=== PATIENT | female | born 1960 | race American Indian/Alaskan Native ===

== ENCOUNTER 2016-07-02 04:40 | Observation (INO) | payer BC, OTHER ==
[2016-07-02 04:47] VITALS: BMI 40.1
--- NOTE | 2016-07-02 05:07 | ED PDOC ---
Arrival/HPI - General Chief Complaint: Chest Pain Time Seen by Provider: 07/02/16 04:58 Historian: Patient - History of Present Illness Narrative History of Present Illness (Text): 07/02/16 05:06 Flori Alfred is a 56 year old female, whose past medical history includes hypertension, ovarian cancer, and hysterectomy, who presents to the ED complaining of chest pain. Patient states she has been experiencing chest pain and mid to lower abdominal pain radiating to her back for the past 2 days, worsening today. Patient also reports some diarrhea. Patient denies any shortness of breath, fever, chills, nausea, vomiting, urinary symptoms, back pain, neck pain, headache, dizziness, or any other complaints. Time/Duration: < week (2 days) Symptom Onset: Gradual Symptom Course: Worsening Activities at Onset: Rest, Light Context: Home Past Medical History - Provider Review Nursing Documentation Reviewed: Yes - Past History Past History: No Previous - Infectious Disease Hx of Infectious Diseases: None - Tetanus Immunization Tetanus Immunization: Unknown - Reproductive Menopause: Yes - Past Medical History Past Medical History: No Previous - Cardiac Hx Cardiac Disorders: No Hx Hypertension: Yes - Pulmonary Hx Respiratory Disorders: No - Neurological Hx Neurological Disorder: No - HEENT Hx HEENT Disorder: No - Renal Hx Renal Disorder: No - Endocrine/Metabolic Hx Endocrine Disorders: No - Hematological/Oncological Hx Blood Transfusions: Yes Hx Blood Transfusion Reaction: No - Integumentary Hx Dermatological Disorder: No - Musculoskeletal/Rheumatological Hx Falls: No - Gastrointestinal Hx Gastrointestinal Disorders: No - Genitourinary/Gynecological Hx Genitourinary Disorders: Yes (UTERINE BLEEDING X4 MONTHS) Other/Comment: FIBROIDS - Psychiatric Hx Psychophysiologic Disorder: No Hx Substance Use: No - Surgical History Hx Section: Yes (x2) Other/Comment: C SECTION - Anesthesia Hx Anesthesia: Yes Hx Anesthesia Reactions: No Hx Malignant Hyperthermia: No - Suicidal Assessment Feels Threatened In Home Enviroment: No Family/Social History - Physician Review Nursing Documentation Reviewed: Yes Family/Social History: No Known Family HX Smoking Status: Never Smoked Hx Alcohol Use: Yes Hx Substance Use: No Hx Substance Use Treatment: No Allergies/Home Meds Allergies/Adverse Reactions: Allergies No Known Allergies Allergy (Verified 04/23/13 16:36) Home Medications: Home Meds Medication Instructions Recorded Confirmed amLODIPine [Norvasc] 5 mg PO DAILY 07/17/14 07/02/16 Review of Systems - Physician Review All systems were reviewed & negative as marked: Yes - Review of Systems Constitutional: Normal. absent: Fevers Eyes: Normal ENT: Normal Respiratory: Normal. absent: SOB, Cough Cardiovascular: Chest Pain Gastrointestinal: Abdominal Pain, Diarrhea. absent: Nausea, Vomiting Genitourinary Female: Normal. absent: Dysuria, Frequency, Hematuria, Urine Output Changes Musculoskeletal: Back Pain. absent: Neck Pain Skin: Normal. absent: Rash Neurological: Normal. absent: Headache, Dizziness Endocrine: Normal Hemo/Lymphatic: Normal Psychiatric: Normal Physical Exam Vital Signs Reviewed: Yes Vital Signs Temp Pulse Resp BP Pulse Ox 07/02/16 04:47 98.4 F 86 20 145/86 97 07/02/16 04:45 98.4 F 91 H 20 145/86 98 Temperature: Afebrile Blood Pressure: Normal Pulse: Regular Respiratory Rate: Normal Appearance: Positive for: Well-Appearing, Non-Toxic, Comfortable Pain Distress: None Mental Status: Positive for: Alert and Oriented X 3 - Systems Exam Head: Present: Atraumatic, Normocephalic Pupils: Present: PERRL Extroacular Muscles: Present: EOMI Conjunctiva: Present: Normal Mouth: Present: Moist Mucous Membranes Neck: Present: Normal Range of Motion Respiratory/Chest: Present: Clear to Auscultation, Good Air Exchange. No: Respiratory Distress, Accessory Muscle Use Cardiovascular: Present: Regular Rate and Rhythm, Normal S1, S2. No: Murmurs Abdomen: Present: Tenderness (mid/lower abdomen), Normal Bowel Sounds. No: Distention, Peritoneal Signs Back: Present: Normal Inspection Upper Extremity: Present: Normal Inspection. No: Cyanosis, Edema Lower Extremity: Present: Normal Inspection. No: Edema Neurological: Present: GCS=15, CN II-XII Intact, Speech Normal Skin: Present: Warm, Dry, Normal Color. No: Rashes Psychiatric: Present: Alert, Oriented x 3, Normal Insight, Normal Concentration Medical Decision Making ED Course and Treatment: 07/02/16 05:07 Impression: 56 y/o female c/o chest pain and abdominal pain radiating to back. Plan: -- EKG -- CXR -- Labs, cardiac enzymes, D-dimer -- IV fluids -- Reassess and disposition Prior Visits: Notes and results from previous visits were reviewed. Progress Notes: Reviewed EKG, NSR at [address]pm[address] LVH. Non-specific ST/T wave changes. 07/02/16 07:[address] Mena, pending CT scan, re-assessment, and final disposition. - Lab Interpretations Lab Results: 07/02/16 05:30 07/02/16 05:30 Lab Results 07/02/16 05:30: WBC 6.4, RBC 4.25, Hgb 10.3 L, Hct 31.8 L, MCV 74.8 L, MCH 24.2 L, MCHC 32.4, RDW 16.0 H, Plt Count 420, MPV 9.0 07/02/16 05:30: Sodium 140, Potassium 3.5 L, Chloride 102, Carbon Dioxide 26, Anion Gap 16, BUN 13, Creatinine 0.6, Est GFR ( Amer) > 60, Est GFR (Non- Af Amer) > 60, Random Glucose 135 H, Calcium 9.3, Total Bilirubin 0.5, AST 24, ALT 30, Alkaline Phosphatase 96, Lactate Dehydrogenase 507, Total Creatine Kinase 194, Troponin I < 0.01, Total Protein 8.1, Albumin 4.3, Globulin 3.8, Albumin/Globulin Ratio 1.1 07/02/16 05:30: PT 10.0, INR 0.93, APTT 28.0, D-Dimer, Quantitative 0.31 - RAD Interpretation Radiology Orders: 07/02/16 05:09 CHEST PORTABLE [RAD] Stat 07/02/16 06:09 CHEST,ABD,PEL W/IV CONT ONLY [CT] Stat - Medication Orders Current Medication Orders: Discontinued Medications Sodium Chloride (Sodium Chloride 0.9%) 1,000 mls @ 999 mls/hr IV .Q1H1M STA Stop: 07/02/16 06:11 Last Admin: 07/02/16 05:28 Dose: 999 mls/hr Iohexol (Omnipaque 350 150 Ml) Confirm Administered Dose 150 ml .ROUTE .STK-MED ONE Stop: 07/02/16 06:19 Morphine Sulfate (Morphine) 2 mg IVP STAT STA Stop: 07/02/16 05:17 Last Admin: 07/02/16 05:32 Dose: 2 mg Ondansetron HCl (Zofran Inj) 4 mg IVP ONCE ONE Stop: 07/02/16 05:17 Last Admin: 07/02/16 05:33 Dose: 4 mg - Scribe Statement The provider has reviewed the documentation as recorded by the Benja Richards Provider Attestation: All medical record entries made by the Benja were at my direction and personally dictated by me. I have reviewed the chart and agree that the record accurately reflects my personal performance of the history, physical exam, medical decision making, and the department course for this patient. I have also personally directed, reviewed, and agree with the discharge instructions and disposition. Disposition/Present on Arrival - Present on Arrival Any Indicators Present on Arrival: No History of DVT/PE: No History of Uncontrolled Diabetes: No Urinary Catheter: No History of Decub. Ulcer: No History Surgical Site Infection Following: None - Disposition Have Diagnosis and Disposition been Completed?: No Diagnosis: Chest pain, Abdominal pain Disposition Time: 07:00 Condition: STABLE Discharge Instructions (ExitCare): Chest Pain (ED)
[2016-07-02] MEDS ORDERED: Sodium Chloride 0.9% 1,000 ML IV STA (05:11)
[2016-07-02] MEDS ORDERED: Morphine 2 mg/ml ISec IVP STA (05:16)
[2016-07-02 05:39] LABS: HEMATOCRIT 31.8 % (36.0-48.0); MEAN CELL VOLUME 74.8 fL (80.0-105.0); MEAN CORPUSCULAR HEMOGLOBIN 24.2 pg (25.0-35.0); MEAN CORPUSCULAR HGB CONC 32.4 g/dl (31.0-37.0); WHITE BLOOD COUNT 6.4 10^3/ul (4.5-11.0)
[2016-07-02 05:54] LABS: INR 0.93 (0.93-1.08)
[2016-07-02 05:55] LABS: ALB/GLOB RATIO 1.1 (1.1-1.8); ALKALINE PHOSPHATASE 96 U/L (38-133); ALT/SGPT 30 U/L (7-56); AST/SGOT 24 U/L (15-39); BILIRUBIN,TOTAL 0.5 mg/dL (0.2-1.3); BLOOD UREA NITROGEN 13 mg/dL (7-21); CALCIUM 9.3 mg/dL (8.4-10.5); CARBON DIOXIDE 26 mmol/L (21-33); CHLORIDE 102 mmol/L (95-110); GFR AFRICAN-AMERICAN > 60; GLUCOSE,RANDOM 135 mg/dL (70-110); POTASSIUM 3.5 mmol/L (3.6-5.0); SODIUM 140 mmol/L (132-148); TOTAL PROTEIN 8.1 g/dL (5.8-8.3)
[2016-07-02 06:02] LABS: D DIMER 0.31 mg/L FEU (0-0.50)
[2016-07-02 06:07] LABS: TROPONIN I < 0.01 ng/mL
--- NOTE | 2016-07-02 06:52 | RAD ---
HISTORY: pain COMPARISON: 09/06/13 FINDINGS: LUNGS: Mild bibasilar atelectasis PLEURA: No significant pleural effusion identified, no pneumothorax apparent. CARDIOVASCULAR: Normal. OSSEOUS STRUCTURES: No significant abnormalities. VISUALIZED UPPER ABDOMEN: Normal. OTHER FINDINGS: None. IMPRESSION: Mild bibasilar atelectasis
--- NOTE | 2016-07-02 07:09 | ED PDOC ---
Physical Exam Vital Signs Reviewed: Yes Vital Signs Temp Pulse Resp BP Pulse Ox 07/02/16 10:10 86 14 143/89 96 07/02/16 09:30 117 H 16 142/77 97 07/02/16 08:10 80 16 150/84 97 07/02/16 04:47 98.4 F 86 20 145/86 97 07/02/16 04:45 98.4 F 91 H 20 145/86 98 Temperature: Afebrile Blood Pressure: Normal Pulse: Regular Respiratory Rate: Normal Appearance: Positive for: Well-Appearing, Non-Toxic, Comfortable Pain Distress: None Mental Status: Positive for: Alert and Oriented X 3 - Systems Exam Head: Present: Atraumatic, Normocephalic Pupils: Present: PERRL Extroacular Muscles: Present: EOMI Conjunctiva: Present: Normal Mouth: Present: Moist Mucous Membranes Neck: Present: Normal Range of Motion Respiratory/Chest: Present: Clear to Auscultation, Good Air Exchange. No: Respiratory Distress, Accessory Muscle Use Cardiovascular: Present: Regular Rate and Rhythm, Normal S1, S2. No: Murmurs Abdomen: Present: Tenderness (mid/lower abdomen), Normal Bowel Sounds. No: Distention, Peritoneal Signs Back: Present: Normal Inspection Upper Extremity: Present: Normal Inspection. No: Cyanosis, Edema Lower Extremity: Present: Normal Inspection. No: Edema Neurological: Present: GCS=15, CN II-XII Intact, Speech Normal Skin: Present: Warm, Dry, Normal Color. No: Rashes Psychiatric: Present: Alert, Oriented x 3, Normal Insight, Normal Concentration Medical Decision Making ED Course and Treatment: 07/02/16 07:23 Patient signed out from prior shift as a 56 y/o F who presented with chest pain that radiated into her abdomen. EKG, Cxray shows bibasilar atelectasis and trop x 1 negative and normal d-dimer prior to my arrival. Signed out as P:CT and likely observation for chest pain. CT Abdomen and Pelvis With Intravenous Contrast FINDINGS: Lower thorax: No acute findings. ABDOMEN: Liver: Unremarkable. No mass. Gallbladder and bile ducts: Unremarkable. No calcified stones. No ductal dilation. Pancreas: Unremarkable. No mass. No ductal dilation. Spleen: Unremarkable. No splenomegaly. Adrenals: Unremarkable. No mass. Kidneys and ureters: Unremarkable. No solid mass. No hydronephrosis. Stomach and bowel: Unremarkable. No obstruction. No mucosal thickening. Appendix: The patient is status post appendectomy. PELVIS: Bladder: Unremarkable. No mass. Reproductive: Unremarkable as visualized. ABDOMEN and PELVIS: Intraperitoneal space: Unremarkable. No free air. No significant fluid collection. Bones/joints: No acute fracture. No dislocation. Soft tissues: Unremarkable. Vasculature: Prominent stranding noted about the origin of the SMA with narrowing of the lumen. The findings may reflect SMA dissection/intramural hematoma and clinical correlation is recommended to assess for upper lumbar region pain. Lymph nodes: Unremarkable. No enlarged lymph nodes. IMPRESSION: Prominent stranding noted about the origin of the SMA with narrowing of the lumen. The findings may reflect SMA dissection/intramural hematoma and clinical correlation is recommended to assess for upper lumbar region pain. EXAM: CT Chest With Intravenous Contrast FINDINGS: Lungs: Subtle slightly nodular parenchymal opacities may reflect subtle pneumonia/small airways disease. Followup recommended to ensure complete resolution of parenchymal findings. Pleural space: Unremarkable. No pneumothorax. No significant effusion. Heart: Unremarkable. No cardiomegaly. No significant pericardial effusion. Bones/joints: Unremarkable. No acute fracture. No dislocation. Soft tissues: Unremarkable. Vasculature: Unremarkable. No thoracic aortic aneurysm. Lymph nodes: Unremarkable. No enlarged lymph nodes. IMPRESSION: Subtle slightly nodular parenchymal opacities may reflect subtle pneumonia/ small airways disease. Followup recommended to ensure complete resolution of parenchymal findings. Dictated and Authenticated by: Doroteo Do MD 07/02/2016 7:12 AM Eastern Time ([place] & [place]) chest xray- Creator : Eyal Rojas MD 07/02/2016 06:53 FINDINGS: LUNGS: Mild bibasilar atelectasis PLEURA: No significant pleural effusion identified, no pneumothorax apparent. CARDIOVASCULAR: Normal. OSSEOUS STRUCTURES: No significant abnormalities. VISUALIZED UPPER ABDOMEN: Normal. OTHER FINDINGS: None. IMPRESSION: Mild bibasilar atelectasis. CT Chest, Abdomen and Pelvis with intravenous contrast Creator : Eyal Rojas MD 07/02/2016 08:01 IMPRESSION: Multiple translucent -semi-solid nodular opacities with least 2 small solid- appearing nodules in the upper lobes as described. Findings are of uncertain etiology. Followup CT scan chest in 3 months recommended for further evaluation Mild emphysematous changes. . Rule out mild underlying pulmonary arterial hypertension. Hepatomegaly with mild fatty hepatic infiltration. Apparent appendectomy. Scattered colonic diverticula however no radiographic evidence of acute diverticulitis Small fat containing umbilical hernia. See above discussion for additional findings and details. 07/02/16 09:[address] Damon after reviewing his CT read as the vrad read said , "Prominent stranding noted about the origin of the SMA with narrowing of the lumen. The findings may reflect SMA dissection/intramural hematoma and clinical correlation is recommended to assess for upper lumbar region pain." He reviewed CT as well as additional attending radiologist. They see non- specific stranding in mesentary that is likely normal vasculature. No evidence of dissection or significant narrowing. Suggest CTA abd/pelvis after 8 hour ( due to recent contrast load) to evaluate further if large clinical concern. Patient is now resting comfortably but reports periumbilical pain. Will transfer to observation for chest pain/intractable abdominal pain. 07/02/16 10:[address] Perez 07/02/16 10:33 - Lab Interpretations Lab Results: 07/02/16 05:30 07/02/16 05:30 Lab Results 07/02/16 08:00: Urine Color Yellow, Urine Appearance Clear, Urine pH 6.5, Ur Specific [place] <= 1.005, Urine Protein Negative, Urine Glucose (UA) Negative, Urine Ketones Negative, Urine Blood Negative, Urine Nitrate Negative, Urine Bilirubin Negative, Urine Urobilinogen 0.2, Ur Leukocyte Esterase Negative 07/02/16 05:30: WBC 6.4, RBC 4.25, Hgb 10.3 L, Hct 31.8 L, MCV 74.8 L, MCH 24.2 L, MCHC 32.4, RDW 16.0 H, Plt Count 420, MPV 9.0 07/02/16 05:30: Sodium 140, Potassium 3.5 L, Chloride 102, Carbon Dioxide 26, Anion Gap 16, BUN 13, Creatinine 0.6, Est GFR ( Amer) > 60, Est GFR (Non- Af Amer) > 60, Random Glucose 135 H, Calcium 9.3, Total Bilirubin 0.5, AST 24, ALT 30, Alkaline Phosphatase 96, Lactate Dehydrogenase 507, Total Creatine Kinase 194, Troponin I < 0.01, Total Protein 8.1, Albumin 4.3, Globulin 3.8, Albumin/Globulin Ratio 1.1 07/02/16 05:30: PT 10.0, INR 0.93, APTT 28.0, D-Dimer, Quantitative 0.31 I have reviewed the lab results: Yes - RAD Interpretation Radiology Orders: 07/02/16 05:09 CHEST PORTABLE [RAD] Stat 07/02/16 06:09 CHEST,ABD,PEL W/IV CONT ONLY [CT] Stat - EKG Interpretation Interpreted by ED Physician: Yes Type: 12 lead EKG - Medication Orders Current Medication Orders: Discontinued Medications Sodium Chloride (Sodium Chloride 0.9%) 1,000 mls @ 999 mls/hr IV .Q1H1M STA Stop: 07/02/16 06:11 Last Admin: 07/02/16 05:28 Dose: 999 mls/hr Iohexol (Omnipaque 350 150 Ml) Confirm Administered Dose 150 ml .ROUTE .STK-MED ONE Stop: 07/02/16 06:19 Morphine Sulfate (Morphine) 2 mg IVP STAT STA Stop: 07/02/16 05:17 Last Admin: 07/02/16 05:32 Dose: 2 mg Re-Assess: ORACIO Pain Assessment Document 07/02/16 06:32 [facility] (Rec: 07/02/16 08:04 [facility] [id number]) Pain Reassessment Is this a pain reassessment? Yes Sleep Is patient sleeping during reassessment? No Presence of Pain Presence of Pain Yes Pain Scale Used Pain Scale Used Numeric Location Left, Right or Bilateral Bilateral Upper or Lower Upper Pain Location Body Site Abdomen Description Intensity of Pain at present 8 Pain Behavior Moaning Facial Grimacing Morphine Sulfate (Morphine) 4 mg IVP STAT STA Stop: 07/02/16 08:05 Last Admin: 07/02/16 08:30 Dose: 4 mg Ondansetron HCl (Zofran Inj) 4 mg IVP ONCE ONE Stop: 07/02/16 05:17 Last Admin: 07/02/16 05:33 Dose: 4 mg - Scribe Statement The provider has reviewed the documentation as recorded by the Antonioibrob Tatum All medical record entries made by the Antonioibrob were at my direction and personally dictated by me. I have reviewed the chart and agree that the record accurately reflects my personal performance of the history, physical exam, medical decision making, and the department course for this patient. I have also personally directed, reviewed, and agree with the discharge instructions and disposition. Disposition/Present on Arrival - Present on Arrival Any Indicators Present on Arrival: No History of DVT/PE: No History of Uncontrolled Diabetes: No Urinary Catheter: No History of Decub. Ulcer: No History Surgical Site Infection Following: None - Disposition Have Diagnosis and Disposition been Completed?: Yes Diagnosis: Chest pain, Abdominal pain, Umbilical hernia, Lung nodule, Diverticulosis, Hepatomegaly Disposition: HOSPITALIZED Disposition Time: 09:25 Patient Plan: Observation Patient Problems: Current Active Problems Problem Status Onset Chest pain Acute Abdominal pain Acute Umbilical hernia Acute Lung nodule Acute Diverticulosis Acute Hepatomegaly Acute Condition: FAIR Discharge Instructions (ExitCare): Chest Pain (ED) Referrals: Neyda Moran MD [Primary Care Provider] - Follow up with primary
[2016-07-02] MEDS ORDERED: Morphine 4 mg/ml ISec IVP STA (08:04)
--- NOTE | 2016-07-02 08:04 | CT ---
PROCEDURE: CT Chest, Abdomen and Pelvis with intravenous contrast HISTORY: pain COMPARISON: None. TECHNIQUE: IV dose administered: 146 cc Omnipaque 350 contrast material. Radiation dose: Total exam DLP = 1277.49 mGy-cm. This CT exam was performed using one or more of the following dose reduction techniques: Automated exposure control, adjustment of the mA and/or kV according to patient size, and/or use of iterative reconstruction technique. FINDINGS: CT CHEST WITH CONTRAST: LUNGS: Mild emphysematous changes seen in the upper lobes. . Some atelectasis/scarring changes seen in the left lingular region and to a lesser degree middle lobe Multiple small translucent -semi-solid nodular opacities seen scattered throughout the upper and lower lobes. More discrete 7 mm solid-appearing nodule seen in the right upper lobe axial CV screening image number 47. . 3 mm nodule left lower lobe posterolateral convexity axial image number 46. Follow-up CT scan of the chest 3 months recommended for further evaluation MEDIASTINUM: Heart size within range of normal. No significant pericardial effusion. Ascending thoracic aorta measures approximately 3.26 cm and descending thoracic aorta measures approximately 2.34 cm. Pulmonary trunk measures approximately 3.2 cm; rule out underlying mild pulmonary arterial hypertension. LYMPH NODES: Few small nonspecific mediastinal lymph nodes. No significant hilar adenopathy There are multiple small nonspecific bilateral axillary lymph nodes. PLEURA: Unremarkable. No pneumothorax. No pleural fluid. BONES: Osseous structures appear grossly intact. Mild multilevel degenerative spondylosis of the thoracic spine OTHER FINDINGS: None. CT ABDOMEN AND PELVIS: LIVER: The liver is enlarged measuring 20 cm in CC dimension. Mild diffuse fatty hepatic infiltration. No obvious hepatic mass or collection. GALLBLADDER AND BILE DUCTS: Gallbladder is appears incompletely distended. No evidence of intraluminal gallbladder calculi PANCREAS: The pancreas appears grossly unremarkable. SPLEEN: Unremarkable. ADRENALS: Unremarkable. No mass. KIDNEYS AND URETERS: Unremarkable. No hydronephrosis. No solid mass. VASCULATURE: Unremarkable. No aortic aneurysm. BOWEL: Evaluation of the bowel is limited due to the lack of oral contrast material the stomach is incompletely distended which may account for thick-walled appearance. Possibility of a gastritis not excluded. Visualized loops of small bowel exhibit normal contour and caliber. No evidence of acute mechanical small bowel obstruction. There does appear to be scattered colonic diverticula along the sigmoid and distal descending colon. No radiographic evidence of acute diverticulitis. APPENDIX: The appendix is not seen with any certainty. There are radiopaque density seen along the medial aspect of the cecum suspected location of the appendix ; findings most likely represent prior appendectomy however clinical correlation with surgical history is recommended. PERITONEUM: Unremarkable. No free fluid. No free air. Small fat containing umbilical hernia. LYMPH NODES: Unremarkable. No enlarged lymph nodes. BLADDER: Urinary bladder is physiologically distended. No evidence of intraluminal urinary bladder calculi. REPRODUCTIVE: There appears to be metallic clips adjacent to the left posterior superior margin of the urinary bladder and the left fundal region of the uterus. Clinical correlation recommended. BONES: Mild -moderate multilevel degenerative spondylosis of the lumbar spine OTHER FINDINGS: None. IMPRESSION: Multiple translucent -semi-solid nodular opacities with least 2 small solid-appearing nodules in the upper lobes as described. Findings are of uncertain etiology. Followup CT scan chest in 3 months recommended for further evaluation Mild emphysematous changes. . Rule out mild underlying pulmonary arterial hypertension. Hepatomegaly with mild fatty hepatic infiltration. Apparent appendectomy. Scattered colonic diverticula however no radiographic evidence of acute diverticulitis Small fat containing umbilical hernia. See above discussion for additional findings and details.
[2016-07-02 08:11] LABS: PH,URINE 6.5 (4.7-8.0); URINE BILIRUBIN NEGATIVE (NEGATIVE); URINE BLOOD NEGATIVE (NEGATIVE); URINE GLUCOSE (UA) NEGATIVE (NEGATIVE); URINE KETONE NEGATIVE (NEGATIVE); URINE LEUKOCYTE ESTERASE NEGATIVE Leu/uL (NEGATIVE); URINE PROTEIN NEGATIVE mg/dL (<30 mg/dL); URINE UROBILINOGEN 0.2 E.U./dL (<1 E.U./dL)
[2016-07-02 08:13] LABS: URINE APPEARANCE CLEAR (CLEAR); URINE COLOR YELLOW (YELLOW)
[2016-07-02] MEDS ORDERED: Sodium Chloride 0.9% 1,000 ML IV SCH (11:00)
--- NOTE | 2016-07-02 11:09 | CP.PCM.HP ---
<Zuleyma Hairston - Last Filed: 07/02/16 13:52> History of Present Illness - History of Present Illness History of Present Illness: CC: chest pain and abd pain 56 year old female with past medical history of HTn and ovarian cancer s/p complete hysterectomy presents for chest pain radiating to abdomen and back x 3 days. Patient states pain started all of a sudden and was intermittent at first but now is constant. Pain started in chest and radiates to epigastric area and straight back. She describes the pain as an ache. She states that at first she thought pain was due to feeling constipated so she took a laxative. Pain did not improve and she started getting diarrhea. She had about 3-4 BMs a day since she took a laxative on Saturday. Patient also c/o fevers of about 102 on Saturday and Saturday. Patient states that she has been taking Tylenol which was helping her pain until yesterday. Patient denies having any N/V, urinary symptoms, hematochezia. She does complain of a chronic cough that is nonproductive. PMHx: stated above Sx; complete hysterectomy 3 years ago, questionable appendectomy, c section x 2 , fibroid sx NKDA Med: see MAR Former smoker quit 30 yrs ago, social ETOH use and no drug use PMD; Pt used to follow up with [facility] 3 years ago. Fhx: cancers, granddad [place] at age 77 Present on Admission - Present on Admission Any Indicators Present on Admission: No Review of Systems - Review of Systems All systems: reviewed and no additional remarkable complaints except Past Patient History - Infectious Disease Hx of Infectious Diseases: None - Tetanus Immunizations Tetanus Immunization: Unknown - Past Social History Smoking Status: Former Smoker Chewing Tobacco Use: No Cigar Use: No Alcohol: Social Drugs: Denies Home Situation {Lives}: With Family - CARDIAC Hx Cardiac Disorders: No Hx Hypertension: Yes - PULMONARY Hx Respiratory Disorders: No - NEUROLOGICAL Hx Neurological Disorder: No - HEENT Hx HEENT Problems: No - RENAL Hx Chronic Kidney Disease: No - ENDOCRINE/METABOLIC Hx Endocrine Disorders: No - HEMATOLOGICAL/ONCOLOGICAL Hx Blood Transfusions: Yes Hx Blood Transfusion Reaction: No - INTEGUMENTARY Hx Dermatological Problems: No - MUSCULOSKELETAL/RHEUMATOLOGICAL Hx Falls: No - GASTROINTESTINAL Hx Gastrointestinal Disorders: No - GENITOURINARY/GYNECOLOGICAL Hx Genitourinary Disorders: Yes (UTERINE BLEEDING X4 MONTHS) Other/Comment: FIBROIDS - PSYCHIATRIC Hx Psychophysiologic Disorder: No Hx Substance Use: No - SURGICAL HISTORY Hx Section: Yes (x2) Other/Comment: C SECTION - ANESTHESIA Hx Anesthesia: Yes Hx Anesthesia Reactions: No Hx Malignant Hyperthermia: No Meds Allergies/Adverse Reactions: Allergies Allergy/AdvReac Type Severity Reaction Status Date / Time No Known Allergies Allergy Verified 04/23/13 16:36 Physical Exam - Constitutional Appears: Non-toxic, No Acute Distress - Head Exam Head Exam: ATRAUMATIC - Eye Exam Eye Exam: EOMI - ENT Exam ENT Exam: Mucous Membranes Moist - Respiratory Exam Respiratory Exam: Clear to Auscultation Bilateral, NORMAL BREATHING PATTERN. absent: Chest Wall Tenderness, Rales, Rhonchi, Wheezes - Cardiovascular Exam Cardiovascular Exam: REGULAR RHYTHM, RRR, +S1, +S2. absent: Diastolic murmur, Gallop, Rubs, Systolic Murmur - GI/Abdominal Exam GI & Abdominal Exam: Normal Bowel Sounds, Soft, Tenderness (epigastric region ) . absent: Distended, Firm, Guarding, Hernia - Extremities Exam Extremities exam: Negative for: pedal edema, tenderness - Neurological Exam Neurological exam: Alert, Oriented x3 - Psychiatric Exam Psychiatric exam: Normal Affect, Normal Mood - Skin Skin Exam: Dry, Intact, Normal Color, Warm Results - Vital Signs Recent Vital Signs: Last Vital Signs Temp 98.4 F 07/02/16 04:47 Pulse 86 07/02/16 10:10 Resp 14 07/02/16 10:10 BP 143/89 07/02/16 10:10 Pulse Ox 96 07/02/16 10:10 - Labs Result Diagrams: 07/02/16 05:30 07/02/16 05:30 Labs: Laboratory Results - last 24 hr 07/02/16 07/02/16 07/02/16 05:30 05:30 05:30 WBC 6.4 RBC 4.25 Hgb 10.3 L Hct 31.8 L MCV 74.8 L MCH 24.2 L MCHC 32.4 RDW 16.0 H Plt Count 420 MPV 9.0 PT 10.0 INR 0.93 APTT 28.0 D-Dimer, Quantitative 0.31 Sodium 140 Potassium 3.5 L Chloride 102 Carbon Dioxide 26 Anion Gap 16 BUN 13 Creatinine 0.6 Est GFR ( Amer) > 60 Est GFR (Non-Af Amer) > 60 Random Glucose 135 H Calcium 9.3 Total Bilirubin 0.5 AST 24 ALT 30 Alkaline Phosphatase 96 Lactate Dehydrogenase 507 Total Creatine Kinase 194 Troponin I < 0.01 Total Protein 8.1 Albumin 4.3 Globulin 3.8 Albumin/Globulin Ratio 1.1 Urine Color Urine Appearance Urine pH Ur Specific [place] Urine Protein Urine Glucose (UA) Urine Ketones Urine Blood Urine Nitrate Urine Bilirubin Urine Urobilinogen Ur Leukocyte Esterase 07/02/16 08:00 WBC RBC Hgb Hct MCV MCH MCHC RDW Plt Count MPV PT INR APTT D-Dimer, Quantitative Sodium Potassium Chloride Carbon Dioxide Anion Gap BUN Creatinine Est GFR ( Amer) Est GFR (Non-Af Amer) Random Glucose Calcium Total Bilirubin AST ALT Alkaline Phosphatase Lactate Dehydrogenase Total Creatine Kinase Troponin I Total Protein Albumin Globulin Albumin/Globulin Ratio Urine Color Yellow Urine Appearance Clear Urine pH 6.5 Ur Specific [place] <= 1.005 Urine Protein Negative Urine Glucose (UA) Negative Urine Ketones Negative Urine Blood Negative Urine Nitrate Negative Urine Bilirubin Negative Urine Urobilinogen 0.2 Ur Leukocyte Esterase Negative Assessment & Plan - Assessment and Plan (Free Text) Assessment: 56 year old female with past medical history of ovarian cancer and HTN presents for CP radiating to epigastric abd and straight back. Initial trop was negative and EKG showed no ST changes. D dimer was negative. CXR on admission showed mild bibasilar atelectasis. CT with IV contrast of chest and abd showed multiple translucent semi solid nodular opacities with at least 2 small solid appearing nodules in upper lobes; mild emphymetuous changes and mild hepatic infiltration. Ct also showed prominent stranding around SMA with lumen narrowing which my reflect dissection/hematoma. recommend repeat CT in 8 hours. 1. CP r/o ACS - Will d serial troponins and EKG - Will consult cardiology - Last echo was in 2011 which showed EF of 58% with grade 1 abnormal relaxation and trace MR and TR. She had an echo done in 01/2012 as well which showed non- obstructive CAD - will repeat ECHO - Will check hgbA1c and lipid panel and TSH free T4 - Will repeat CTA of chest/abd/pelvis 2. Abd pain with diarrhea - Pt made NPO - NS 100 cc - will check lipase and lactic acid 3. HTN - cont home medication norvasc 5 mg qd Prophylaxis - SCDs, lovenox - protonix Case discussed with attending, Dr. Saavedra - Date & Time Date: 07/02/16 Time: 11:10 <Elda Saavedra - Last Filed: 07/02/16 19:55> Results - Vital Signs Recent Vital Signs: Last Vital Signs Temp 98.4 F 07/02/16 13:08 Pulse 83 07/02/16 16:01 Resp 12 07/02/16 16:01 BP 146/69 07/02/16 16:01 Pulse Ox 98 07/02/16 16:01 - Labs Result Diagrams: 07/02/16 05:30 07/02/16 05:30 Attending/Attestation - Attestation I have personally seen and examined this patient.: Yes I have fully participated in the care of the patient.: Yes I have reviewed all pertinent clinical information: Yes Notes (Text): I have seen and examined patient at bedside. Agree with the above note with the following additions/ exceptions: Briefly this is 56 year old female with history of HTN, former smoker, ovarian cancer s/p total hysterectomy & oophorectomy who presented with chest pain x 2 days which was radiating to her back. Initial trop and ekg was not suggestive of ischemic changes. DDimer negative. Will trend serial troponins, ekg and will do echo. CT revealed semi solid nodular opacities, 2 solid appearing nodules in upper lobe, mild emphysematous changes and mild hepatic infiltration. Prelim CT revealed prominent stranding around SMA which could represent dissection or hematoma however radiologist reviewed that again and didnt agree with the findings. Repeat CT scan order was cancelled by radiologist. For multiple pulmonary nodules with solid component (7mm), recommend CT scan of chest in 3 months. Upon discharge patient will follow up with Dr Moran. Dr Elda Saavedra
[2016-07-02] MEDS: Pantoprazole 40 mg EC Tab PO SCH (11:23)
--- NOTE | 2016-07-02 12:34 | CARD ---
APPROVED REPORT EKG Measurement Heart [id number] <Conclusion> Normal sinus rhythm Moderate voltage criteria for LVH, may be normal variant Nonspecific T wave abnormality Abnormal ECG
[2016-07-02] MEDS ORDERED: Pneumococcal 23-Valent Vaccine IM ONE (13:19)
--- NOTE | 2016-07-02 17:26 | US ---
HISTORY: Leg pain and swelling. Evaluate for DVT PHYSICIAN(S): Doroteo Taylor MD. TECHNIQUE: Duplex sonography and color-flow Doppler with graded compression were used to evaluate the deep venous systems of both lower extremities. FINDINGS: The visualized deep venous systems of both lower extremities are sonographically normal and compressible. Normal wave forms and augmentation are seen. There is no sonographic evidence for deep venous thrombosis in the visualized segments of both lower extremities. IMPRESSION: No sonographic evidence for deep venous thrombosis in the visualized segments of both lower extremities.
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
[2016-07-02 20:49] LABS: LIPASE 28 U/L (23-300)
[2016-07-02 21:03] LABS: TROPONIN I < 0.01 ng/mL
[2016-07-03 05:47] VITALS: O2SAT 99
[2016-07-03 06:38] LABS: ADD MANUAL DIFF? NO
[2016-07-03 06:46] LABS: BASO # 0.01 K/mm3 (0.0-2.0); BASO % 0.2 % (0.0-3.0); EOS # 0.2 (0.0-0.7); EOS % 4.9 % (1.5-5.0); GRAN # 2.32 (1.4-6.5); HEMATOCRIT 30.7 % (36.0-48.0); LYMPH # 1.9 (1.2-3.4); LYMPH % 40.6 % (22.0-35.0); MEAN CELL VOLUME 75.6 fL (80.0-105.0); MEAN CORPUSCULAR HEMOGLOBIN 23.9 pg (25.0-35.0); MEAN CORPUSCULAR HGB CONC 31.6 g/dl (31.0-37.0); MEAN PLATELET VOLUME 8.7 fl (7.0-11.0); MONO # 0.3 (0.1-0.6); MONO % 5.3 % (1.0-6.0); PLATELET COUNT 391 10^3/uL (120.0-450.0); RED CELL DISTRIBUTION WIDTH 15.5 % (11.5-14.5); WHITE BLOOD COUNT 4.7 10^3/ul (4.5-11.0)
[2016-07-03 06:56] LABS: BLOOD UREA NITROGEN 8 mg/dL (7-21); GFR AFRICAN-AMERICAN > 60; GLUCOSE,RANDOM 142 mg/dL (70-110); SODIUM 139 mmol/L (132-148)
[2016-07-03 06:57] LABS: ALB/GLOB RATIO 1.1 (1.1-1.8); ALKALINE PHOSPHATASE 68 U/L (38-133); ALT/SGPT 31 U/L (7-56); AST/SGOT 28 U/L (15-39); BILIRUBIN,TOTAL 0.4 mg/dL (0.2-1.3); CALCIUM 8.8 mg/dL (8.4-10.5); CARBON DIOXIDE 25 mmol/L (21-33); CHLORIDE 105 mmol/L (98-107); CHOLESTEROL 222 mg/dL (130-200); POTASSIUM 3.5 mmol/L (3.6-5.0)
[2016-07-03 08:32] LABS: FREE T4 0.88 ng/dL (0.78-2.19)
[2016-07-03 08:46] LABS: THYROID STIMULATING HORMONE 1.98 mIU/mL (0.46-4.68)
[2016-07-03] MEDS ORDERED: Potassium Chloride 20 mEq ER Tab PO ONE (09:08)
[2016-07-03] MEDS ORDERED: Enoxaparin 30 mg Syringe SC SCH (10:00)
[2016-07-03] MEDS: Pantoprazole 40 mg EC Tab PO SCH (10:14)
[2016-07-03] MEDS ORDERED: guaiFENesin 200 mg/10 ml Syrup UD PO PRN (10:21)
[2016-07-03 12:45] VITALS: BP 104/50; RESP 20; TEMP 98.3
[2016-07-03 15:48] VITALS: PULSE 89
--- NOTE | 2016-07-03 16:06 | CP.PCM.DIS ---
<Zuleyma Hairston - Last Filed: 07/03/16 15:59> Provider - Provider Date of Admission: 07/02/16 10:14 Attending physician: Elda Saavedra MD Primary care physician: Neyda Moran MD Consults: Cardio: Dr. Padilla Time Spent in preparation of Discharge (in minutes): 45 Diagnosis - Discharge Diagnosis (1) HTN (hypertension) Status: Chronic (2) Incidental lung nodule, > 3mm and < 8mm Status: Acute (3) Hyperlipidemia Status: Chronic (4) Chest pain Status: Acute Hospital Course - Lab Results Lab Results: Most Recent Lab Values WBC 4.7 10^3/ul (4.5-11.0) D 07/03/16 06:05 RBC 4.06 10^6/uL (3.5-6.1) 07/03/16 06:05 Hgb 9.7 gm/dL (12.0-16.0) L 07/03/16 06:05 Hct 30.7 % (36.0-48.0) L 07/03/16 06:05 MCV 75.6 fL (80.0-105.0) L 07/03/16 06:05 MCH 23.9 pg (25.0-35.0) L 07/03/16 06:05 MCHC 31.6 g/dl (31.0-37.0) 07/03/16 06:05 RDW 15.5 % (11.5-14.5) H 07/03/16 06:05 Plt Count 391 10^3/uL (120.0-450.0) 07/03/16 06:05 MPV 8.7 fl (7.0-11.0) 07/03/16 06:05 Gran % 49.0 % (50.0-68.0) L 07/03/16 06:05 Lymph % (Auto) 40.6 % (22.0-35.0) H 07/03/16 06:05 Brown % (Auto) 5.3 % (1.0-6.0) 07/03/16 06:05 Eos % (Auto) 4.9 % (1.5-5.0) 07/03/16 06:05 Baso % (Auto) 0.2 % (0.0-3.0) 07/03/16 06:05 Gran # 2.32 (1.4-6.5) 07/03/16 06:05 Lymph # 1.9 (1.2-3.4) 07/03/16 06:05 Brown # 0.3 (0.1-0.6) 07/03/16 06:05 Eos # 0.2 (0.0-0.7) 07/03/16 06:05 Baso # 0.01 K/mm3 (0.0-2.0) 07/03/16 06:05 PT 10.0 Seconds (9.9-11.8) 07/02/16 05:30 INR 0.93 (0.93-1.08) 07/02/16 05:30 APTT 28.0 Seconds (23.7-30.8) 07/02/16 05:30 D-Dimer, Quantitative 0.31 mg/L FEU (0-0.50) 07/02/16 05:30 Sodium 139 mmol/L (132-148) 07/03/16 06:05 Potassium 3.5 mmol/L (3.6-5.0) L 07/03/16 06:05 Chloride 105 mmol/L (98-107) 07/03/16 06:05 Carbon Dioxide 25 mmol/L (21-33) 07/03/16 06:05 Anion Gap 13 (10-20) 07/03/16 06:05 BUN 8 mg/dL (7-21) 07/03/16 06:05 Creatinine 0.6 mg/dL (0.5-1.4) 07/03/16 06:05 Est GFR ( Amer) > 60 07/03/16 06:05 Est GFR (Non-Af Amer) > 60 07/03/16 06:05 Random Glucose 142 mg/dL (70-110) H 07/03/16 06:05 Lactic Acid 1.4 mmol/L (0.7-2.1) 07/02/16 20:29 Calcium 8.8 mg/dL (8.4-10.5) 07/03/16 06:05 TIBC 313 ug/dL (265-497) 07/02/16 20:29 Ferritin 213.0 ng/mL 07/02/16 20:29 Total Bilirubin 0.4 mg/dL (0.2-1.3) 07/03/16 06:05 AST 28 U/L (15-39) 07/03/16 06:05 ALT 31 U/L (7-56) 07/03/16 06:05 Alkaline Phosphatase 68 U/L (38-133) 07/03/16 06:05 Lactate Dehydrogenase 507 U/L (333-699) 07/02/16 05:30 Total Creatine Kinase 194 U/L (35-230) 07/02/16 05:30 Troponin I < 0.01 ng/mL 07/03/16 06:05 Total Protein 7.0 g/dL (5.8-8.3) 07/03/16 06:05 Albumin 3.7 g/dL (3.0-4.8) 07/03/16 06:05 Globulin 3.3 gm/dL 07/03/16 06:05 Albumin/Globulin Ratio 1.1 (1.1-1.8) 07/03/16 06:05 Triglycerides 128 mg/dL (35-160) 07/03/16 06:05 Cholesterol 222 mg/dL (130-200) H 07/03/16 06:05 LDL Cholesterol Direct 187 mg/dL (0-129) H 07/03/16 06:05 HDL Cholesterol 31 mg/dL (29-60) 07/03/16 06:05 Lipase 28 U/L (23-300) 07/02/16 20:29 Free T4 0.88 ng/dL (0.78-2.19) 07/03/16 06:05 TSH 3rd Generation 1.98 mIU/mL (0.46-4.68) 07/03/16 06:05 Urine Color Yellow (YELLOW) 07/02/16 08:00 Urine Appearance Clear (CLEAR) 07/02/16 08:00 Urine pH 6.5 (4.7-8.0) 07/02/16 08:00 Ur Specific [place] <= 1.005 (1.005-1.035) 07/02/16 08:00 Urine Protein Negative mg/dL (<30 mg/dL) 07/02/16 08:00 Urine Glucose (UA) Negative mg/dL (NEGATIVE) 07/02/16 08:00 Urine Ketones Negative mg/dL (NEGATIVE) 07/02/16 08:00 Urine Blood Negative (NEGATIVE) 07/02/16 08:00 Urine Nitrate Negative (NEGATIVE) 07/02/16 08:00 Urine Bilirubin Negative (NEGATIVE) 07/02/16 08:00 Urine Urobilinogen 0.2 E.U./dL (<1 E.U./dL) 07/02/16 08:00 Ur Leukocyte Esterase Negative Thomas/uL (NEGATIVE) 07/02/16 08:00 - Hospital Course Hospital Course: 56 year old female with past medical history of ovarian cancer and HTN presents for CP radiating to epigastric abd and straight back. CXR on admission showed mild bibasilar atelectasis. Troponins x 3 were negative and EKG showed no ST changes. D dimer was also negative. CT with IV contrast of chest and abd showed multiple translucent semi solid nodular opacities with at least 2 small solid appearing nodules in upper lobes; mild emphymetuous changes and mild hepatic infiltration. Lipase and lactic acid were within normal limits. Patient complained of cough for a few weeks prior to admission which may be the reason for the chest pain. Patient was started on antibiotics and cough syrup. Patient was also asked to follow up with PMD upon discharge to discuss Ct findings and to have a CT scan of chest done in 3 months. Patient was found to have elevated cholesterol and LDL. She was started on Lipitor and recommended diet and exercise. Patient is to follow up with PMD upon discharge. Patient is to get a repeat CT scan of chest to assess lung nodules in 3 months. Patient will be given a copy of the CT scan from this hospital visit before discharge. Encouraged weight loss and exercise. Patient is discharged on the following medications: Lipitor 10 mg po qd, Z pack , Norvasc 5 mg po qd and Robitussin. Scripts will be sent to [facility]. - Date & Time of H&P Date of H&P: 07/03/16 Time of H&P: 16:00 Discharge Exam - Head Exam Head Exam: ATRAUMATIC - Eye Exam Eye Exam: EOMI - ENT Exam ENT Exam: Mucous Membranes Moist - Respiratory Exam Respiratory Exam: Clear to PA & Lateral, NORMAL BREATHING PATTERN. absent: Rales, Rhonchi, Wheezes - Cardiovascular Exam Cardiovascular Exam: REGULAR RHYTHM, +S1, +S2. absent: Diastolic murmur, Gallop , Rubs, Systolic Murmur - GI/Abdominal Exam GI & Abdominal Exam: Normal Bowel Sounds, Unremarkable. absent: Distended, Firm , Guarding, Soft - Neurological Exam Neurological exam: Alert, Oriented x3 - Psychiatric Exam Psychiatric exam: Normal Affect, Normal Mood - Skin Skin Exam: Dry, Intact, Normal Color, Warm Discharge Plan - Discharge Medications Prescriptions: amLODIPine [Norvasc] 5 mg PO DAILY #30 Atorvastatin [Lipitor] 10 mg PO DIN #30 tab Azithromycin [Z-Corbin] 250 mg PO DAILY #6 tab guaiFENesin [Robitussin] 200 mg PO Q4H PRN #1 PRN Reason: Cough And Congestion Pantoprazole [Protonix EC Tab] 40 mg PO DAILY #30 ect - Follow Up Plan Condition: FAIR Disposition: HOME/ ROUTINE Instructions: Chronic Hypertension (DC), Obesity (DC), Hyperlipidemia (DC) Additional Instructions: Patient is to follow up with PMD upon discharge. Patient is to get a repeat CT scan of chest to assess lung nodules in 3 months. Patient will be given a copy of the CT scan from this hospital visit before discharge. Encouraged weight loss and exercise. Patient is discharged on the following medications: Lipitor 10 mg po qd, Z pack , Norvasc 5 mg po qd and Robitussin. Scripts will be sent to [facility]. Referrals: Neyda Moran MD [Primary Care Provider] - <Elda Saavedra - Last Filed: 07/04/16 10:02> Provider - Provider Date of Admission: 07/02/16 10:14 Attending physician: Elda Saavedra MD Primary care physician: Neyda Moran MD Hospital Course - Lab Results Lab Results: Most Recent Lab Values WBC 4.7 10^3/ul (4.5-11.0) D 07/03/16 06:05 RBC 4.06 10^6/uL (3.5-6.1) 07/03/16 06:05 Hgb 9.7 gm/dL (12.0-16.0) L 07/03/16 06:05 Hct 30.7 % (36.0-48.0) L 07/03/16 06:05 MCV 75.6 fL (80.0-105.0) L 07/03/16 06:05 MCH 23.9 pg (25.0-35.0) L 07/03/16 06:05 MCHC 31.6 g/dl (31.0-37.0) 07/03/16 06:05 RDW 15.5 % (11.5-14.5) H 07/03/16 06:05 Plt Count 391 10^3/uL (120.0-450.0) 07/03/16 06:05 MPV 8.7 fl (7.0-11.0) 07/03/16 06:05 Gran % 49.0 % (50.0-68.0) L 07/03/16 06:05 Lymph % (Auto) 40.6 % (22.0-35.0) H 07/03/16 06:05 Brown % (Auto) 5.3 % (1.0-6.0) 07/03/16 06:05 Eos % (Auto) 4.9 % (1.5-5.0) 07/03/16 06:05 Baso % (Auto) 0.2 % (0.0-3.0) 07/03/16 06:05 Gran # 2.32 (1.4-6.5) 07/03/16 06:05 Lymph # 1.9 (1.2-3.4) 07/03/16 06:05 Brown # 0.3 (0.1-0.6) 07/03/16 06:05 Eos # 0.2 (0.0-0.7) 07/03/16 06:05 Baso # 0.01 K/mm3 (0.0-2.0) 07/03/16 06:05 PT 10.0 Seconds (9.9-11.8) 07/02/16 05:30 INR 0.93 (0.93-1.08) 07/02/16 05:30 APTT 28.0 Seconds (23.7-30.8) 07/02/16 05:30 D-Dimer, Quantitative 0.31 mg/L FEU (0-0.50) 07/02/16 05:30 Sodium 139 mmol/L (132-148) 07/03/16 06:05 Potassium 3.5 mmol/L (3.6-5.0) L 07/03/16 06:05 Chloride 105 mmol/L (98-107) 07/03/16 06:05 Carbon Dioxide 25 mmol/L (21-33) 07/03/16 06:05 Anion Gap 13 (10-20) 07/03/16 06:05 BUN 8 mg/dL (7-21) 07/03/16 06:05 Creatinine 0.6 mg/dL (0.5-1.4) 07/03/16 06:05 Est GFR ( Amer) > 60 07/03/16 06:05 Est GFR (Non-Af Amer) > 60 07/03/16 06:05 Random Glucose 142 mg/dL (70-110) H 07/03/16 06:05 Hemoglobin A1c 5.8 % (4.2-6.5) 07/03/16 06:05 Lactic Acid 1.4 mmol/L (0.7-2.1) 07/02/16 20:29 Calcium 8.8 mg/dL (8.4-10.5) 07/03/16 06:05 TIBC 313 ug/dL (265-497) 07/02/16 20:29 Ferritin 213.0 ng/mL 07/02/16 20:29 Total Bilirubin 0.4 mg/dL (0.2-1.3) 07/03/16 06:05 AST 28 U/L (15-39) 07/03/16 06:05 ALT 31 U/L (7-56) 07/03/16 06:05 Alkaline Phosphatase 68 U/L (38-133) 07/03/16 06:05 Lactate Dehydrogenase 507 U/L (333-699) 07/02/16 05:30 Total Creatine Kinase 194 U/L (35-230) 07/02/16 05:30 Troponin I < 0.01 ng/mL 07/03/16 06:05 Total Protein 7.0 g/dL (5.8-8.3) 07/03/16 06:05 Albumin 3.7 g/dL (3.0-4.8) 07/03/16 06:05 Globulin 3.3 gm/dL 07/03/16 06:05 Albumin/Globulin Ratio 1.1 (1.1-1.8) 07/03/16 06:05 Triglycerides 128 mg/dL (35-160) 07/03/16 06:05 Cholesterol 222 mg/dL (130-200) H 07/03/16 06:05 LDL Cholesterol Direct 187 mg/dL (0-129) H 07/03/16 06:05 HDL Cholesterol 31 mg/dL (29-60) 07/03/16 06:05 Lipase 28 U/L (23-300) 07/02/16 20:29 Free T4 0.88 ng/dL (0.78-2.19) 07/03/16 06:05 TSH 3rd Generation 1.98 mIU/mL (0.46-4.68) 07/03/16 06:05 Urine Color Yellow (YELLOW) 07/02/16 08:00 Urine Appearance Clear (CLEAR) 07/02/16 08:00 Urine pH 6.5 (4.7-8.0) 07/02/16 08:00 Ur Specific [place] <= 1.005 (1.005-1.035) 07/02/16 08:00 Urine Protein Negative mg/dL (<30 mg/dL) 07/02/16 08:00 Urine Glucose (UA) Negative mg/dL (NEGATIVE) 07/02/16 08:00 Urine Ketones Negative mg/dL (NEGATIVE) 07/02/16 08:00 Urine Blood Negative (NEGATIVE) 07/02/16 08:00 Urine Nitrate Negative (NEGATIVE) 07/02/16 08:00 Urine Bilirubin Negative (NEGATIVE) 07/02/16 08:00 Urine Urobilinogen 0.2 E.U./dL (<1 E.U./dL) 07/02/16 08:00 Ur Leukocyte Esterase Negative Thomas/uL (NEGATIVE) 07/02/16 08:00 Urine Opiates Screen Negative (NEGATIVE) 07/03/16 23:12 Urine Methadone Screen Negative (NEGATIVE) 07/03/16 23:12 Ur Barbiturates Screen Negative (NEGATIVE) 07/03/16 23:12 Ur Phencyclidine Scrn Negative (NEGATIVE) 07/03/16 23:12 Ur Amphetamines Screen Negative (NEGATIVE) 07/03/16 23:12 U Benzodiazepines Scrn Negative (NEGATIVE) 07/03/16 23:12 U Oth Cocaine Metabols Negative (NEGATIVE) 07/03/16 23:12 U Cannabinoids Screen Negative (NEGATIVE) 07/03/16 23:12 Attending/Attestation - Attestation I have personally seen and examined this patient.: Yes I have fully participated in the care of the patient.: Yes I have reviewed all pertinent clinical information, including history, physical exam and plan: Yes Notes (Text): I have seen and examined patient at bedside. Agree with the above note with the following additions/ exceptions: Briefly this is 56 year old female with history of HTN, former smoker, ovarian cancer s/p total hysterectomy & oophorectomy who presented with chest pain x 2 days which was radiating to her back. Serial troponins and ekg not suggestive of ischemic changes. DDimer negative. Echo is done however result is pending at this time. Pain improved on its own. Discussed with ink printer who will review echo today. CT revealed semi solid nodular opacities, 2 solid appearing nodules in upper lobe, mild emphysematous changes and mild hepatic infiltration. For multiple pulmonary nodules with solid component (7mm) I discussed in detail with Dr Moran who will probably schedule lung biopsy as an outpatient due to given history of ovarian cancer. CT report was given to the patient. Upon discharge patient will follow up with Dr Moran. Dr Elda Saavedra
--- NOTE | 2016-07-03 21:34 | PN ---
DATE: 07/03/2016 SUBJECTIVE: The patient denies any chest pain. PHYSICAL EXAMINATION: VITAL SIGNS: Blood pressure 104/50, heart rate 85, temperature 98.3, respirations 20. HEENT: Pale conjunctivae. CHEST: Clear. HEART: S1, S2 regular. EXTREMITIES: No edema. LABORATORIES: Hemoglobin and hematocrit 9.7 and 30.7, white count and platelet count are within norm al limits. Two sets of troponins are negative. Today's potassium is 3.5. LDL cholesterol is 222, H DL cholesterol is 187; both are elevated. Today's EKG revealed normal sinus rhythm, prolonged QT int erval. ASSESSMENT: 1. Atypical chest pain, myocardial infarction is ruled out. 2. Hypokalemia, prolonged QT interval. 3. History of recent right foot surgery. Venous Doppler is negative for deep venous thrombosis. 4. Bilateral pulmonary nodules. RECOMMENDATIONS: Continue current Lipitor, subcutaneous Lovenox, amlodipine and IV Zithromax. The c ase was discussed with Dr. Saavedra, who discussed the patient with the primary physician, Dr. Moran, and both agreed on scheduling the patient for a lung biopsy as an outpatient in view of her history of o varian cancer. In the meantime, I will review the echocardiograph study. Joseph Padilla MD cc: [id number] TT: 07/03/2016 21:34:38 Confirmation # [id number] Dictation # [id number] parul
--- NOTE | 2016-07-03 21:34 | CARD ---
APPROVED REPORT EKG Measurement Heart [id number] <Conclusion> Normal sinus rhythm Nonspecific T wave abnormality Prolonged QT Abnormal ECG
--- NOTE | 2016-07-04 10:16 | CARD ---
APPROVED REPORT EXAM: Two-dimensional and M-mode echocardiogram with Doppler and color Doppler. INDICATION Chest Pain 2D DIMENSIONS Left Atrium (2D)4.6 (1.6-4.0cm)IVSd1.0 (0.7-1.1cm) LVDd5.1 (3.9-5.9cm)PWd1.1 (0.7-1.1cm) LVDs3.2 (2.5-4.0cm)FS (%) 36.6 % LVEF (%)66.0 (>50%) M-Mode DIMENSIONS Aortic Root3.30 (2.2-3.7cm)Aortic Cusp Exc.2.00 (1.5-2.0cm) Aortic Valve AoV Peak Hmbxkmfg698.0cm/Stephane Peak GR.8mmHg Mitral Valve MV E Mopgeoxg99.9cm/sMV A Izrbzqgd458.0cm/sE/A ratio0.8 TDI Lateral E' Peak V10.90cm/sMedial E' Peak V8.38cm/sE/Lateral E'7.6 E/Medial E'9.9 Pulmonary Valve PV Peak Hwnkqotw83.8cm/sPV Peak Grad.3mmHg Tricuspid Valve TR Peak Yjyoubvt684ux/sRAP SQHLLMQK95ynEaFR Peak Gr.12mmHg [id number] LEFT VENTRICLE The left ventricle is normal size. There is normal left ventricular wall thickness. The left ventricular function is normal.EF-65% There is normal LV segmental wall motion. Transmitral Doppler flow pattern is Grade III-reversible restrictive diastolic dysfunction. No left ventricle thrombus noted on this study. There is no ventricular septal defect visualized. There is no left ventricular aneurysm. There is no mass noted in the left ventricle. RIGHT VENTRICLE The right ventricle is normal size. There is normal right ventricular wall thickness. The right ventricular systolic function is normal. ATRIA The left atrium is mildly dilated. The right atrium size is normal. The interatrial septum is intact with no evidence for an atrial septal defect. AORTIC VALVE The aortic valve is normal in structure. No aortic regurgitation is present. There is no aortic valvular stenosis. There is no aortic valvular vegetation. MITRAL VALVE The mitral valve is thickened but opens well. Mitral regurgitation is trace. There is no mitral valve stenosis. There is no evidence of mitral valve prolapse. TRICUSPID VALVE The tricuspid valve leaflets are thickened , but open well. There is trace tricuspid regurgitation.RVSP-22 mmof Hg. There is no tricuspid valve stenosis. There is no tricuspid valve prolapse or vegetation. PULMONIC VALVE The pulmonary valve is normal in structure. GREAT VESSELS The aortic root is normal in size. The ascending aorta is normal in size. The pulmonary artery is normal. The IVC is normal in size and collapses >50% with inspiration. PERICARDIAL EFFUSION There is no pleural effusion. There is no pericardial effusion. <Conclusion> The left ventricle is normal size. There is normal left ventricular wall thickness. The left ventricular function is normal.EF-65% Mitral regurgitation is trace. There is trace tricuspid regurgitation.RVSP-22 mmof Hg. No vegetation or thrombus noted.
== END 2016-07-03 18:38 | disposition home or self-care (01) ==
LOC: ED 04:40 → ERH 10:14 → 2RNO 17:40
PROVIDERS: ADMIT Internal Medicine; ATTEND Hospitalist
DX: R07.89 Other chest pain (principal); I10 Essential (primary) hypertension; R91.1 Solitary pulmonary nodule; E78.5 Hyperlipidemia, unspecified; Z85.43 Personal history of malignant neoplasm of ovary; E87.6 Hypokalemia; I45.81 Long QT syndrome
CPT/HCPCS: 36415; 71010; 71260; 74177; 80053; 80061; 81003; 82550; 82728; 83036; 83550; 83605; 83615; 83690; 84439; 84443; 84484; 85025; 85027; 85378; 85610; 85730; 93005; 93306; 93970; 96372; 96374; 96375; 96376; 99285; G0378; G0480; J1650; J1885; J2270; J2405; J7040; Q9967

== ENCOUNTER 2016-09-10 19:57 | Observation (INO) | payer MEDICAID, OTHER ==
[2016-09-10 20:20] VITALS: BMI 39.1
--- NOTE | 2016-09-10 20:49 | ED PDOC ---
Arrival/HPI - General Chief Complaint: Chest Pain Time Seen by Provider: 09/10/16 19:58 Historian: Patient - History of Present Illness Narrative History of Present Illness (Text): 09/10/16 20:15 Flori Alfred is a 56 year old female, whose past medical history includes hypertension, ovarian cancer, and hysterectomy, who presents to the Emergency department complaining of chest discomfort. Patient describes his pain as a gripping sensation that began today at home. The discomfort does not radiate anywhere else, but patient reports having a headache. Patient denies shortness of breath, nausea, vomiting, fever, chills, trauma, or other complaints. Time/Duration: Other (earlier today ) Symptom Onset: Sudden Symptom Course: Unchanged Modifying Factors (Text): None Context: Home Associated Symptoms (Text): None Past Medical History - Provider Review Nursing Documentation Reviewed: Yes - Past History Past History: No Previous - Infectious Disease Hx of Infectious Diseases: None - Tetanus Immunization Tetanus Immunization: Unknown - Past Medical History Past Medical History: No Previous - Cardiac Hx Hypertension: Yes - Pulmonary Hx Respiratory Disorders: No - Neurological Hx Neurological Disorder: No - HEENT Hx HEENT Disorder: No - Renal Hx Renal Disorder: No - Endocrine/Metabolic Hx Endocrine Disorders: No - Hematological/Oncological Hx Blood Transfusions: Yes Hx Blood Transfusion Reaction: No Hx Cancer: Yes (ovarian CA) - Integumentary Hx Dermatological Disorder: No - Musculoskeletal/Rheumatological Hx Falls: No - Gastrointestinal Hx Gastrointestinal Disorders: No - Genitourinary/Gynecological Hx Genitourinary Disorders: Yes (UTERINE BLEEDING X4 MONTHS) Hx Ovarian Cancer: Yes Other/Comment: FIBROIDS - Psychiatric Hx Psychophysiologic Disorder: No Hx Substance Use: No - Surgical History Hx Section: Yes (x2) Hx Hysterectomy: Yes Other/Comment: C SECTION - Anesthesia Hx Anesthesia: Yes Hx Anesthesia Reactions: No Hx Malignant Hyperthermia: No - Suicidal Assessment Feels Threatened In Home Enviroment: No Family/Social History - Physician Review Nursing Documentation Reviewed: Yes Family/Social History: Unknown Family HX Smoking Status: Former Smoker Hx Alcohol Use: Yes (social) Hx Substance Use: No Hx Substance Use Treatment: No Allergies/Home Meds Allergies/Adverse Reactions: Allergies No Known Allergies Allergy (Verified 04/23/13 16:36) Review of Systems - Physician Review All systems were reviewed & negative as marked: Yes - Review of Systems Constitutional: absent: Fevers Respiratory: absent: SOB Cardiovascular: Chest Pain Gastrointestinal: absent: Abdominal Pain, Diarrhea, Nausea, Vomiting Neurological: Headache Physical Exam Vital Signs Pulse Resp BP Pulse Ox 09/10/16 23:23 72 16 158/86 H 99 09/10/16 19:58 82 18 156/75 H 100 Appearance: Positive for: Well-Appearing, Non-Toxic, Comfortable Pain Distress: None Mental Status: Positive for: Alert and Oriented X 3 - Systems Exam Head: Present: Atraumatic, Normocephalic Pupils: Present: PERRL Extroacular Muscles: Present: EOMI Conjunctiva: Present: Normal Mouth: Present: Moist Mucous Membranes Neck: Present: Normal Range of Motion Respiratory/Chest: Present: Clear to Auscultation, Good Air Exchange. No: Respiratory Distress, Accessory Muscle Use Cardiovascular: Present: Regular Rate and Rhythm, Normal S1, S2. No: Murmurs Abdomen: Present: Normal Bowel Sounds. No: Tenderness, Distention, Peritoneal Signs Back: Present: Normal Inspection Upper Extremity: Present: Normal Inspection. No: Cyanosis, Edema Lower Extremity: Present: Normal Inspection. No: Edema Neurological: Present: GCS=15, CN II-XII Intact, Speech Normal Skin: Present: Warm, Dry, Normal Color. No: Rashes Psychiatric: Present: Alert, Oriented x 3, Normal Insight, Normal Concentration Medical Decision Making ED Course and Treatment: 09/10/16 20:15 Impression: 56 year old female with chest discomfort. Plan: -- EKG -- Chest X-ray -- Labs -- Aspirin -- Reassess and disposition Progress Notes: EKG: Ordered, reviewed, and independently interpreted the EKG. Rate : 85 BPM Rhythm : NSR Interpretation : Non specific T-wave changes and slight QT wave intervals. No changes from previous EKG. 09/10/16 21:53 Chest X-ray interpreted by me: No acute process. 09/10/16 23:15 Case discussed with who is aware and agrees with the plan to observe patient at telemetry for chest pain. Accepts patient under hospitalist service. - Lab Interpretations Lab Results: 09/10/16 21:00 09/10/16 21:00 Lab Results 09/10/16 21:00: WBC 7.1 D, RBC 4.46, Hgb 10.6 L, Hct 33.1 L, MCV 74.2 L, MCH 23.8 L, MCHC 32.0, RDW 15.4 H, Plt Count 441, MPV 9.0 09/10/16 21:00: Sodium 141, Potassium 3.6, Chloride 102, Carbon Dioxide 25, Anion Gap 18, BUN 12, Creatinine 0.7, Est GFR ( Amer) > 60, Est GFR (Non- Af Amer) > 60, Random Glucose 99, Calcium 9.6, Total Bilirubin 0.6, AST 33, ALT 28, Alkaline Phosphatase 89, Lactate Dehydrogenase 567, Total Creatine Kinase 200, Troponin I < 0.01, Total Protein 8.1, Albumin 4.4, Globulin 3.7, Albumin/ Globulin Ratio 1.2 09/10/16 21:00: PT 10.2, INR 0.94, APTT 27.1 I have reviewed the lab results: Yes - RAD Interpretation Radiology Orders: 09/10/16 20:16 CHEST PORTABLE [RAD] Stat - EKG Interpretation Interpreted by ED Physician: Yes Type: 12 lead EKG - Medication Orders Current Medication Orders: Acetaminophen (Tylenol 325mg Tab) 650 mg PO Q6 PRN PRN Reason: Pain, Mild (1-3) Acetaminophen (Tylenol 325mg Tab) 650 mg PO Q6 PRN PRN Reason: Fever >100.4 F Amlodipine Besylate (Norvasc) 5 mg PO DAILY SAMMI Atorvastatin Calcium (Lipitor) 10 mg PO DIN SAMMI Benzocaine/Menthol (Cepacol Sore Throat) 1 javon MT Q2H PRN PRN Reason: Sore Throat Last Admin: 09/11/16 01:13 Dose: 1 javon Nitroglycerin (Nitrostat Sl Tab) 0.4 mg SL Q5M PRN PRN Reason: chest pain Pantoprazole Sodium (Protonix Inj) 40 mg IVP DAILY SAMMI Discontinued Medications Aspirin (Aspirin) 325 mg PO ONCE STA Stop: 09/10/16 20:28 Last Admin: 09/10/16 21:17 Dose: 325 mg Ketorolac Tromethamine (Toradol) 30 mg IVP STAT STA Stop: 09/11/16 00:56 Last Admin: 09/11/16 01:13 Dose: 30 mg Re-Assess: ORACIO Pain Assessment Document 09/11/16 02:13 ST (Rec: 09/11/16 02:41 [id number]) Pain Reassessment Is this a pain reassessment? Yes Sleep Is patient sleeping during reassessment? Yes - Scribe Statement The provider has reviewed the documentation as recorded by the Scribe 09/10/2016 Maribeth Gilliland Provider Scribe Attestation: All medical record entries made by the Scribe were at my direction and personally dictated by me. I have reviewed the chart and agree that the record accurately reflects my personal performance of the history, physical exam, medical decision making, and the department course for this patient. I have also personally directed, reviewed, and agree with the discharge instructions and disposition. Disposition/Present on Arrival - Present on Arrival Any Indicators Present on Arrival: No History of DVT/PE: No History of Uncontrolled Diabetes: No Urinary Catheter: No History of Decub. Ulcer: No History Surgical Site Infection Following: None - Disposition Have Diagnosis and Disposition been Completed?: Yes Diagnosis: Chest pain Disposition: HOSPITALIZED Disposition Time: 23:14 Patient Plan: Observation Patient Problems: Current Active Problems Problem Status Onset Chest pain Acute Condition: STABLE
[2016-09-10 21:25] LABS: HEMATOCRIT 33.1 % (36.0-48.0); MEAN CELL VOLUME 74.2 fL (80.0-105.0); MEAN CORPUSCULAR HEMOGLOBIN 23.8 pg (25.0-35.0); RED CELL DISTRIBUTION WIDTH 15.4 % (11.5-14.5); WHITE BLOOD COUNT 7.1 10^3/ul (4.5-11.0)
[2016-09-10 21:36] LABS: ALB/GLOB RATIO 1.2 (1.1-1.8); ALKALINE PHOSPHATASE 89 U/L (38-133); ALT/SGPT 28 U/L (7-56); AST/SGOT 33 U/L (15-39); BILIRUBIN,TOTAL 0.6 mg/dL (0.2-1.3); BLOOD UREA NITROGEN 12 mg/dL (7-21); CALCIUM 9.6 mg/dL (8.4-10.5); CARBON DIOXIDE 25 mmol/L (21-33); CHLORIDE 102 mmol/L (98-107); GFR AFRICAN-AMERICAN > 60; GLUCOSE,RANDOM 99 mg/dL (70-110); POTASSIUM 3.6 mmol/L (3.6-5.0); SODIUM 141 mmol/L (132-148); TOTAL PROTEIN 8.1 g/dL (5.8-8.3)
[2016-09-10 21:48] LABS: TROPONIN I < 0.01 ng/mL
[2016-09-10 22:05] LABS: INR 0.94 (0.93-1.08); PARTIAL THROMBOPLASTIN TIME 27.1 Seconds (23.7-30.8)
[2016-09-11] MEDS ORDERED: Benzocaine/Menthol (Cepacol) Lozenge MT PRN (00:30)
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
[2016-09-11 03:23] LABS: ALB/GLOB RATIO 1.1 (1.1-1.8); ALKALINE PHOSPHATASE 73 U/L (38-133); AST/SGOT 23 U/L (15-39); BILIRUBIN,TOTAL 0.4 mg/dL (0.2-1.3); BLOOD UREA NITROGEN 10 mg/dL (7-21); CALCIUM 9.2 mg/dL (8.4-10.5); CARBON DIOXIDE 26 mmol/L (21-33); GFR AFRICAN-AMERICAN > 60; GLUCOSE,RANDOM 105 mg/dL (70-110); TOTAL PROTEIN 7.6 g/dL (5.8-8.3)
[2016-09-11 03:52] LABS: ALT/SGPT 33 U/L (7-56); CHLORIDE 103 mmol/L (98-107); POTASSIUM 3.6 mmol/L (3.6-5.0); SODIUM 143 mmol/L (132-148)
[2016-09-11 04:07] LABS: TROPONIN I < 0.01 ng/mL
[2016-09-11 05:42] VITALS: O2SAT 98
--- NOTE | 2016-09-11 07:45 | RAD ---
HISTORY: chest pain COMPARISON: Prior chest radiograph 07/02/2016. FINDINGS: LUNGS: No active pulmonary disease. Prior reported bibasilar atelectasis appears to have resolved. PLEURA: No significant pleural effusion identified, no pneumothorax apparent. CARDIOVASCULAR: Normal. OSSEOUS STRUCTURES: No significant abnormalities. VISUALIZED UPPER ABDOMEN: Normal. OTHER FINDINGS: None. IMPRESSION: No interval acute cardiopulmonary is identified.
[2016-09-11 08:54] LABS: ADD MANUAL DIFF? NO
[2016-09-11 08:58] LABS: BASO # 0.01 K/mm3 (0.0-2.0); BASO % 0.2 % (0.0-3.0); EOS # 0.2 (0.0-0.7); EOS % 3.4 % (1.5-5.0); GRAN # 2.73 (1.4-6.5); GRAN % 53.8 % (50.0-68.0); HEMATOCRIT 33.7 % (36.0-48.0); LYMPH # 1.9 (1.2-3.4); LYMPH % 36.7 % (22.0-35.0); MEAN CELL VOLUME 74.4 fL (80.0-105.0); MEAN CORPUSCULAR HEMOGLOBIN 23.6 pg (25.0-35.0); MEAN CORPUSCULAR HGB CONC 31.8 g/dl (31.0-37.0); MEAN PLATELET VOLUME 8.8 fl (7.0-11.0); MONO # 0.3 (0.1-0.6); MONO % 5.9 % (1.0-6.0); PLATELET COUNT 420 10^3/uL (120.0-450.0); RED CELL DISTRIBUTION WIDTH 15.5 % (11.5-14.5); WHITE BLOOD COUNT 5.1 10^3/ul (4.5-11.0)
--- NOTE | 2016-09-11 09:59 | CARD ---
APPROVED REPORT EKG Measurement Heart [id number] VA [id number] <Conclusion> Normal sinus rhythm Minimal voltage criteria for LVH, may be normal variant Nonspecific T wave abnormality Prolonged QT No change
--- NOTE | 2016-09-11 10:09 | CARD ---
APPROVED REPORT EKG Measurement Heart [id number] NM 172P25 [id number] <Conclusion> Normal sinus rhythm Nonspecific T wave abnormality No change except the QTC is normal now.
[2016-09-11 11:42] VITALS: TEMP 98.4
[2016-09-11 17:47] VITALS: BP 163/83; PULSE 80; RESP 20
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
--- NOTE | 2016-09-13 07:24 | CP.PCM.DIS ---
<Yariel Sheets - Last Filed: 09/13/16 17:59> Provider - Provider Date of Admission: 09/10/16 23:15 Attending physician: Jovan Perez MD Primary care physician: Neyda Moran MD Consults: Cardio Dr. Padilla Time Spent in preparation of Discharge (in minutes): 20 Diagnosis - Discharge Diagnosis (1) Chest pain Status: Acute (2) HTN (hypertension) Status: Chronic Hospital Course - Lab Results Lab Results: Most Recent Lab Values WBC 5.1 10^3/ul (4.5-11.0) D 09/11/16 08:30 RBC 4.53 10^6/uL (3.5-6.1) 09/11/16 08:30 Hgb 10.7 gm/dL (12.0-16.0) L 09/11/16 08:30 Hct 33.7 % (36.0-48.0) L 09/11/16 08:30 MCV 74.4 fL (80.0-105.0) L 09/11/16 08:30 MCH 23.6 pg (25.0-35.0) L 09/11/16 08:30 MCHC 31.8 g/dl (31.0-37.0) 09/11/16 08:30 RDW 15.5 % (11.5-14.5) H 09/11/16 08:30 Plt Count 420 10^3/uL (120.0-450.0) 09/11/16 08:30 MPV 8.8 fl (7.0-11.0) 09/11/16 08:30 Gran % 53.8 % (50.0-68.0) 09/11/16 08:30 Lymph % (Auto) 36.7 % (22.0-35.0) H 09/11/16 08:30 [place] % (Auto) 5.9 % (1.0-6.0) 09/11/16 08:30 Eos % (Auto) 3.4 % (1.5-5.0) 09/11/16 08:30 Baso % (Auto) 0.2 % (0.0-3.0) 09/11/16 08:30 Gran # 2.73 (1.4-6.5) 09/11/16 08:30 Lymph # 1.9 (1.2-3.4) 09/11/16 08:30 [place] # 0.3 (0.1-0.6) 09/11/16 08:30 Eos # 0.2 (0.0-0.7) 09/11/16 08:30 Baso # 0.01 K/mm3 (0.0-2.0) 09/11/16 08:30 PT 10.2 Seconds (9.9-11.8) 09/10/16 21:00 INR 0.94 (0.93-1.08) 09/10/16 21:00 APTT 27.1 Seconds (23.7-30.8) 09/10/16 21:00 D-Dimer, Quantitative 0.32 mg/L FEU (0-0.50) 09/11/16 17:30 Sodium 143 mmol/L (132-148) 09/11/16 03:05 Potassium 3.6 mmol/L (3.6-5.0) 09/11/16 03:05 Chloride 103 mmol/L (98-107) 09/11/16 03:05 Carbon Dioxide 26 mmol/L (21-33) 09/11/16 03:05 Anion Gap 18 (10-20) 09/11/16 03:05 BUN 10 mg/dL (7-21) 09/11/16 03:05 Creatinine 0.6 mg/dL (0.5-1.4) 09/11/16 03:05 Est GFR ( Amer) > 60 09/11/16 03:05 Est GFR (Non-Af Amer) > 60 09/11/16 03:05 Random Glucose 105 mg/dL (70-110) 09/11/16 03:05 Calcium 9.2 mg/dL (8.4-10.5) 09/11/16 03:05 Total Bilirubin 0.4 mg/dL (0.2-1.3) 09/11/16 03:05 AST 23 U/L (15-39) 09/11/16 03:05 ALT 33 U/L (7-56) 09/11/16 03:05 Alkaline Phosphatase 73 U/L (38-133) 09/11/16 03:05 Lactate Dehydrogenase 567 U/L (333-699) 09/10/16 21:00 Total Creatine Kinase 200 U/L (35-230) 09/10/16 21:00 Troponin I < 0.01 ng/mL 09/11/16 08:30 Total Protein 7.6 g/dL (5.8-8.3) 09/11/16 03:05 Albumin 4.0 g/dL (3.0-4.8) 09/11/16 03:05 Globulin 3.7 gm/dL 09/11/16 03:05 Albumin/Globulin Ratio 1.1 (1.1-1.8) 09/11/16 03:05 Urine Opiates Screen Negative (NEGATIVE) 09/11/16 16:30 Urine Methadone Screen Negative (NEGATIVE) 09/11/16 16:30 Ur Barbiturates Screen Negative (NEGATIVE) 09/11/16 16:30 Ur Phencyclidine Scrn Negative (NEGATIVE) 09/11/16 16:30 Ur Amphetamines Screen Negative (NEGATIVE) 09/11/16 16:30 U Benzodiazepines Scrn Negative (NEGATIVE) 09/11/16 16:30 U Oth Cocaine Metabols Negative (NEGATIVE) 09/11/16 16:30 U Cannabinoids Screen Negative (NEGATIVE) 09/11/16 16:30 - Hospital Course Hospital Course: 56 year old female with a PMH of HTN and ovarian CA who presented with headache and chest pain. Patient was placed in observation and had 3 sets of negative troponins. Patient was evaluated by cardiology who determined that myocardial infarction was ruled out. Patient was seen and examined again and was seen and was doing much better and had resolution of her symptoms. Patient was discharged in a stable condition with clear instructions to follow up her PMD. Patient verbalized both the understanding and agreement with the plan. Scripts sent to patient's preferred pharmacy. - Date & Time of H&P Date of H&P: 09/11/16 Time of H&P: 19:00 Discharge Exam - Head Exam Head Exam: NORMAL INSPECTION, NORMOCEPHALIC - Eye Exam Eye Exam: EOMI, Normal appearance, PERRL - ENT Exam ENT Exam: Mucous Membranes Moist, Normal Oropharynx - Neck Exam Neck exam: Full Rom - Respiratory Exam Respiratory Exam: Clear to PA & Lateral. absent: Rales, Rhonchi, Wheezes - Cardiovascular Exam Cardiovascular Exam: RRR, +S1, +S2. absent: Gallop, Rubs, +S4, Systolic Murmur - GI/Abdominal Exam GI & Abdominal Exam: Normal Bowel Sounds, Soft. absent: Tenderness - Neurological Exam Neurological exam: Alert, CN II-XII Intact, Oriented x3 - Skin Skin Exam: Dry, Warm Discharge Plan - Discharge Medications Prescriptions: amLODIPine [Norvasc] 5 mg PO DAILY #30 Atorvastatin [Lipitor] 10 mg PO DIN #30 tab - Follow Up Plan Condition: STABLE Disposition: HOME/ ROUTINE Instructions: Chest Pain (DC), Chest Pain (GEN), Heart Healthy Diet (DC), Low Sodium Diet (DC), Hypertension (DC), Hypertension (GEN) Referrals: Neyda Moran MD [Primary Care Provider] - <Jovan Perez - Last Filed: 09/14/16 13:36> Provider - Provider Date of Admission: 09/10/16 23:15 Attending physician: Jovan Perez MD Primary care physician: Neyda Moran MD Hospital Course - Lab Results Lab Results: Most Recent Lab Values WBC 5.1 10^3/ul (4.5-11.0) D 09/11/16 08:30 RBC 4.53 10^6/uL (3.5-6.1) 09/11/16 08:30 Hgb 10.7 gm/dL (12.0-16.0) L 09/11/16 08:30 Hct 33.7 % (36.0-48.0) L 09/11/16 08:30 MCV 74.4 fL (80.0-105.0) L 09/11/16 08:30 MCH 23.6 pg (25.0-35.0) L 09/11/16 08:30 MCHC 31.8 g/dl (31.0-37.0) 09/11/16 08:30 RDW 15.5 % (11.5-14.5) H 09/11/16 08:30 Plt Count 420 10^3/uL (120.0-450.0) 09/11/16 08:30 MPV 8.8 fl (7.0-11.0) 09/11/16 08:30 Gran % 53.8 % (50.0-68.0) 09/11/16 08:30 Lymph % (Auto) 36.7 % (22.0-35.0) H 09/11/16 08:30 [place] % (Auto) 5.9 % (1.0-6.0) 09/11/16 08:30 Eos % (Auto) 3.4 % (1.5-5.0) 09/11/16 08:30 Baso % (Auto) 0.2 % (0.0-3.0) 09/11/16 08:30 Gran # 2.73 (1.4-6.5) 09/11/16 08:30 Lymph # 1.9 (1.2-3.4) 09/11/16 08:30 [place] # 0.3 (0.1-0.6) 09/11/16 08:30 Eos # 0.2 (0.0-0.7) 09/11/16 08:30 Baso # 0.01 K/mm3 (0.0-2.0) 09/11/16 08:30 PT 10.2 Seconds (9.9-11.8) 09/10/16 21:00 INR 0.94 (0.93-1.08) 09/10/16 21:00 APTT 27.1 Seconds (23.7-30.8) 09/10/16 21:00 D-Dimer, Quantitative 0.32 mg/L FEU (0-0.50) 09/11/16 17:30 Sodium 143 mmol/L (132-148) 09/11/16 03:05 Potassium 3.6 mmol/L (3.6-5.0) 09/11/16 03:05 Chloride 103 mmol/L (98-107) 09/11/16 03:05 Carbon Dioxide 26 mmol/L (21-33) 09/11/16 03:05 Anion Gap 18 (10-20) 09/11/16 03:05 BUN 10 mg/dL (7-21) 09/11/16 03:05 Creatinine 0.6 mg/dL (0.5-1.4) 09/11/16 03:05 Est GFR ( Amer) > 60 09/11/16 03:05 Est GFR (Non-Af Amer) > 60 09/11/16 03:05 Random Glucose 105 mg/dL (70-110) 09/11/16 03:05 Calcium 9.2 mg/dL (8.4-10.5) 09/11/16 03:05 Total Bilirubin 0.4 mg/dL (0.2-1.3) 09/11/16 03:05 AST 23 U/L (15-39) 09/11/16 03:05 ALT 33 U/L (7-56) 09/11/16 03:05 Alkaline Phosphatase 73 U/L (38-133) 09/11/16 03:05 Lactate Dehydrogenase 567 U/L (333-699) 09/10/16 21:00 Total Creatine Kinase 200 U/L (35-230) 09/10/16 21:00 Troponin I < 0.01 ng/mL 09/11/16 08:30 Total Protein 7.6 g/dL (5.8-8.3) 09/11/16 03:05 Albumin 4.0 g/dL (3.0-4.8) 09/11/16 03:05 Globulin 3.7 gm/dL 09/11/16 03:05 Albumin/Globulin Ratio 1.1 (1.1-1.8) 09/11/16 03:05 Urine Opiates Screen Negative (NEGATIVE) 09/11/16 16:30 Urine Methadone Screen Negative (NEGATIVE) 09/11/16 16:30 Ur Barbiturates Screen Negative (NEGATIVE) 09/11/16 16:30 Ur Phencyclidine Scrn Negative (NEGATIVE) 09/11/16 16:30 Ur Amphetamines Screen Negative (NEGATIVE) 09/11/16 16:30 U Benzodiazepines Scrn Negative (NEGATIVE) 09/11/16 16:30 U Oth Cocaine Metabols Negative (NEGATIVE) 09/11/16 16:30 U Cannabinoids Screen Negative (NEGATIVE) 09/11/16 16:30 Attending/Attestation - Attestation I have personally seen and examined this patient.: Yes I have fully participated in the care of the patient.: Yes I have reviewed all pertinent clinical information, including history, physical exam and plan: Yes Notes (Text): 09/11/16 56 year old female with past medical history of hypertension and dyslipidemia who presented with complaint of chest pain. Serial cardiac enzymes were negative and ACS was ruled. She was seen by cardiology and cleared for discharge. Her symptoms resolved today. Patient is discharged home to follow up with her pmd. Continue with [facility] for hypertension and statin for dyslipidemia. Jovan Perez MD Hospitalist.
== END 2016-09-11 21:53 | disposition home or self-care (01) ==
LOC: ED 19:57 → ERH 23:15 → 2RSO 09-11 00:18
PROVIDERS: ADMIT Internal Medicine; ATTEND Internal Medicine
DX: R07.9 Chest pain, unspecified (principal); R51 Headache; J02.9 Acute pharyngitis, unspecified; I10 Essential (primary) hypertension; Z87.891 Personal history of nicotine dependence; Z85.43 Personal history of malignant neoplasm of ovary; D64.9 Anemia, unspecified
CPT/HCPCS: 36415; 71010; 80053; 80324; 80345; 80346; 80349; 80353; 80358; 80361; 82550; 83615; 83992; 84484; 85025; 85027; 85378; 85610; 85730; 93005; 99285; C9113; G0378; J1885